=== PATIENT | female | born 1990 | race Caucasian/White ===

== ENCOUNTER 2019-07-14 22:31 | Emergency (ER) | payer SELFPAY ==
[~2019-07-14] VITALS: Ht 154.9 cm; Wt 70.3 kg
[2019-07-14 23:20] LABS: BILIRUBIN NEGATIVE (NEGATIVE); BLOOD 1+ (NEGATIVE); CLARITY CLOUDY (CLEAR); COLOR YELLOW (YELLOW); GLUCOSE NEGATIVE (NEGATIVE); KETONE 1+ (NEGATIVE); LEUKO ESTERASE 3+ (NEGATIVE); NITRITE POSITIVE (NEGATIVE); UROBILINOGEN 0.2 E.U./dl (0.2-1.0)
[2019-07-14 23:28] LABS: RBC 0-2 rbc/hpf (0-2); WBC TNTC wbc/hpf (0-5)
[2019-07-14 23:29] LABS: BACTERIA 4+; MUCOUS TRACE
[2019-07-14] MEDS ORDERED: CIPRO500 MG PO (23:35)
[2019-07-14] MEDS ORDERED: ZOFRAN4 MG PO (23:35)
[2019-07-14] MEDS ORDERED: PYRIDIUM100 MG PO (23:36)
== END 2019-07-14 23:52 | disposition home or self-care (01) ==
LOC: ED 22:31
PROVIDERS: Nurse Practitioner Family
DX: J10.1 Influenza due to other identified influenza virus with other respiratory manifestations (principal); N39.0 Urinary tract infection, site not specified; M54.5 Low back pain; R30.9 Painful micturition, unspecified; F17.200 Nicotine dependence, unspecified, uncomplicated

== ENCOUNTER 2021-09-20 09:40 | Emergency (ER) | payer OTHER ==
[~2021-09-20 09:40] MED LIST: CIPRO500 MG PO; PYRIDIUM100 MG PO; ZOFRAN4 MG PO
[2021-09-20] MEDS ORDERED: SEPTDS PO (10:00)
[2021-09-20 10:32] LABS: BILIRUBIN Negative (Negative); BLOOD Negative (Negative); CLARITY Clear (Clear); COLOR Yellow (Yellow); GLUCOSE Negative (Negative); KETONE Negative (Negative); LEUKO ESTERASE 2+ (Negative); NITRITE Negative (Negative); PH 5.5 (4.5-8.0); SPECIFIC GRAVITY <= 1.005 (1.001-1.030); UROBILINOGEN 0.2 E.U./dl (0.0-1.0)
[2021-09-20 10:52] LABS: BACTERIA 1+; MUCOUS 1+; RBC 0-2 rbc/hpf (0-2); WBC 16-20 wbc/hpf (0-5)
== END 2021-09-20 10:22 | disposition home or self-care (01) ==
LOC: ED 09:40
PROVIDERS: Internal Medicine
DX: R30.0 Dysuria (principal); R31.9 Hematuria, unspecified

== ENCOUNTER 2022-08-27 19:29 | Emergency (ER) | payer OTHER ==
[~2022-08-27] VITALS: Ht 154.9 cm; Wt 91.2 kg
[~2022-08-27 19:29] MED LIST changes: +SEPTDS PO
[2022-08-27] MEDS ORDERED: AMOX-CLAV 875-1 EACH PO (20:03)
== END 2022-08-27 20:18 | disposition home or self-care (01) ==
LOC: ED 19:29
DX: O26.893 Other specified pregnancy related conditions, third trimester (principal); H66.91 Otitis media, unspecified, right ear; Z3A.30 30 weeks gestation of pregnancy

== ENCOUNTER 2023-09-15 20:33 | Emergency (ER) | payer OTHER ==
[~2023-09-15] VITALS: Ht 154.9 cm; Wt 79.4 kg
[~2023-09-15 20:33] MED LIST changes: +AMOX-CLAV 875-1 EACH PO
[2023-09-15] MEDS ORDERED: methylPREDNISolone sod succ 125 MG VIAL IV ONE (21:00)
[2023-09-15] MEDS ORDERED: SODIUM CHLORIDE 0.9% 1,000 ML IV ONE (21:00)
== END 2023-09-15 22:50 | disposition home or self-care (01) ==
LOC: ED 20:33
DX: U07.1 COVID-19 (principal); Z88.7 Allergy status to serum and vaccine